=== PATIENT | female | born 1935 | race Caucasian/White ===

== ENCOUNTER 2024-10-02 11:30 | Outpatient (CLI) | payer MEDICARE, OTHER | END 2024-10-02 23:59 | disposition home or self-care (01) | LOC: MRI 11:30 | PROVIDERS: ATTEND Physician Assistant | DX: S32.020A Wedge compression fracture of second lumbar vertebra, initial encounter for closed fracture (principal); S32.050A Wedge compression fracture of fifth lumbar vertebra, initial encounter for closed fracture; M51.369 Other intervertebral disc degeneration, lumbar region without mention of lumbar back pain or lower extremity pain; M47.817 Spondylosis without myelopathy or radiculopathy, lumbosacral region; X58.XXXA Exposure to other specified factors, initial encounter; Y93.89 Activity, other specified; Y92.89 Other specified places as the place of occurrence of the external cause; Y99.8 Other external cause status | CPT/HCPCS: 72148 ==